=== PATIENT | female | born 1980 | race Caucasian/White ===

== ENCOUNTER → 2017-06-10 | Outpatient (CLI) | payer OTHER ==
--- NOTE | 2017-06-10 16:05 | KCIC ---
EXAM: Abdomen sonogram complete. HISTORY: Epigastric pain. TECHNIQUE: Sonographic imaging of the abdomen was performed. COMPARISON: None. FINDINGS: The liver is normal in size. There is hepatic steatosis. No focal hepatic lesion is seen. The gallbladder is centrally absent. The common bile duct is normal in caliber. The kidneys are normal in size. No solid or cystic renal lesion is seen. The spleen is normal in size. The pancreas is unremarkable. The aorta normal in caliber. The inferior vena cava is patent. IMPRESSION: 1. Hepatic steatosis. 2. Cholecystectomy. Electronically signed by: Lisa Corbett MD (06/10/2017 4:02 PM) [id number]
== END | disposition home or self-care (01) ==
LOC: KCIC US 15:01
DX: K76.0 Fatty (change of) liver, not elsewhere classified (principal); Z90.49 Acquired absence of other specified parts of digestive tract
CPT/HCPCS: 76700

== ENCOUNTER → 2017-06-23 | Outpatient (CLI) | payer OTHER ==
[~2017-06-23] MED LIST: BARIUM SULFATE 96% 397 GM ENEMA. PR ONE
--- NOTE | 2017-06-23 12:21 | RAD ---
EXAM: Small bowel follow-through. HISTORY: Prior sleeve gastrectomy, weight loss, difficulty eating, bloating. COMPARISON: None. FINDINGS: A senior scheduler image demonstrates changes of cholecystectomy and sleeve gastrectomy. Barium contrast material was administered orally and followed in its course through the small bowel with fluoroscopy and plain radiographs. 11 fluoroscopic images were obtained. Fluoroscopy time 0.7 minutes. There is a moderate hiatal hernia. The postoperative stomach otherwise appears as expected. The small bowel appears normal. No focal lesions are seen. The fold pattern is normal. There are no strictures or dilatation. Transit time is mildly delayed at 3 hours. IMPRESSION: 1. Moderate hiatal hernia. 2. Mildly delayed small bowel transit at 3 hours.
== END | disposition home or self-care (01) ==
LOC: RAD 07:29
PROVIDERS: ATTEND Internal Medicine Gastroenterology
DX: K44.9 Diaphragmatic hernia without obstruction or gangrene (principal); R63.3 Feeding difficulties; R63.4 Abnormal weight loss; Z98.84 Bariatric surgery status
CPT/HCPCS: 74250